=== PATIENT | male | born 1990 | race Hispanic/Latino ===

== ENCOUNTER 2018-02-20 18:54 | Emergency (ER) | payer OTHER ==
[2018-02-20 19:04] VITALS: BP 142/77; TEMP 98.3
[2018-02-20] MEDS ORDERED: Sodium Chloride 0.9% 1,000 ML IV STA (19:12)
--- NOTE | 2018-02-20 19:19 | ED PDOC ---
Syncope/Near Syncope/Dizziness Time Seen by Provider: 02/20/18 19:06 Chief Complaint (Nursing): Dizziness/Lightheaded Chief Complaint (Provider): Dizziness/Lightheaded History Per: Patient History/Exam Limitations: no limitations Onset/Duration Of Symptoms: Days (x7) Current Symptoms Are (Timing): Still Present Fall Associated With With Symptoms: No Additional Complaint(s): 27 year old male presents to the ED complaining of dizziness and lightheadedness for 1 week. Associated with nausea, but no vomiting. Otherwise patient denies any chest pain, SOB, headache, numbness, tingling, focal weakness, syncope/fall, or other associated symptoms. On arrival patient appears anxious. Past Medical History Reviewed: Historical Data, Nursing Documentation, Vital Signs Vital Signs: Last Vital Signs Temp 98.3 F 02/20/18 19:01 Pulse 101 H 02/20/18 19:01 Resp 19 02/20/18 19:01 BP 142/77 02/20/18 19:01 Pulse Ox 96 02/20/18 19:01 - Medical History PMH: No Chronic Diseases - Family History Family History: States: No Known Family Hx - Home Medications Home Medications: Ambulatory Orders Medication Instructions Recorded Meclizine [Meclizine*] 25 mg PO Q8 #15 tab 02/20/18 - Allergies Allergies/Adverse Reactions: Allergies Allergy/AdvReac Type Severity Reaction Status Date / Time No Known Allergies Allergy Verified 02/20/18 19:01 Review of Systems ROS Statement: Except As Marked, All Systems Reviewed And Found Negative Constitutional: Negative for: Fever Eyes: Negative for: Vision Change Cardiovascular: Positive for: Light Headedness. Negative for: Chest Pain, Palpitations Respiratory: Negative for: Shortness of Breath Gastrointestinal: Positive for: Nausea. Negative for: Vomiting Neurological: Positive for: Dizziness. Negative for: Weakness, Numbness, Incoordination, Headache, Other (syncope/fall) Physical Exam - Reviewed Nursing Documentation Reviewed: Yes Vital Signs Reviewed: Yes - Physical Exam Appears: Positive for: Non-toxic, No Acute Distress Head Exam: Positive for: ATRAUMATIC, NORMOCEPHALIC Skin: Positive for: Normal Color, Warm, Dry Eye Exam: Positive for: Normal appearance, EOMI, PERRL Neck: Positive for: Normal, Painless ROM, Supple Cardiovascular/Chest: Positive for: Regular Rate, Rhythm. Negative for: Murmur Respiratory: Positive for: Normal Breath Sounds. Negative for: Respiratory Distress Pulses-Radial (L): 2+ Pulses-Radial (R): 2+ Gastrointestinal/Abdominal: Positive for: Normal Exam, Soft. Negative for: Tenderness Extremity: Positive for: Normal ROM. Negative for: Calf Tenderness, Swelling Neurologic/Psych: Positive for: Alert, mri specialist II-XII (intact), Oriented (x3), Gait (steady). Negative for: Motor/Sensory Deficits, Cerebellar Tests - Laboratory Results Result Diagrams: 02/20/18 19:53 02/20/18 19:53 - ECG O2 Sat by Pulse Oximetry: 96 (RA) Pulse Ox Interpretation: Normal Medical Decision Making Medical Decision Making: Time: 1911 Initial Impression: Dizziness/lightheadedness Initial Plan: * EKG * Labs * CT Head * IVF hydration Scribe Attestation: Documented by Aleksandra Feng, acting as a scribe for Dr. Darius Loredo MD. Provider Scribe Attestation: All medical record entries made by the Scribe were at my direction and personally dictated by me. I have reviewed the chart and agree that the record accurately reflects my personal performance of the history, physical exam, medical decision making, and the department course for this patient. I have also personally directed, reviewed, and agree with the discharge instructions and disposition. Disposition - Clinical Impression Clinical Impression: Dizziness of unknown cause - Patient ED Disposition Is Patient to be Admitted: No Counseled Patient/Family Regarding: Studies Performed, Diagnosis, Need For Followup, Rx Given - Disposition Referrals: FAMILY PROVIDER,NO [Primary Care Provider] - Nemesio Oliva MD [Medical Doctor] - Disposition: Routine/Home Disposition Time: 21:44 Condition: FAIR Prescriptions: Meclizine [Meclizine*] 25 mg PO Q8 #15 tab Instructions: Vertigo (a Type of Dizziness) Forms: [facility] (Maltese)
[2018-02-20 19:56] LABS: BASO # 0.1 K/uL (0.0-0.2); BASO % 0.7 % (0.0-2.0); EOS # 0.1 K/uL (0.0-0.7); EOS % 0.7 % (0.0-4.0); HEMOGLOBIN 15.2 g/dL (12.0-18.0); LYMPH # 1.7 K/uL (1.0-4.3); LYMPH % 17.8 % (20.0-40.0); MEAN CELL VOLUME 82.1 fl (80.0-94.0); MEAN CORPUSCULAR HEMOGLOBIN 28.2 pg (27.0-31.0); MEAN CORPUSCULAR HGB CONC 34.3 g/dL (33.0-37.0); MEAN PLATELET VOLUME 6.8 fl (7.2-11.7); MONO # 0.6 K/uL (0.0-0.8); MONO % 6.3 % (0.0-10.0); NEUT # 7.1 K/uL (1.8-7.0); NEUT % 74.5 % (50.0-75.0); RBC 5.39 Mil/uL (4.40-5.90); RED CELL DISTRIBUTION WIDTH 13.6 % (11.5-14.5); WHITE BLOOD COUNT 9.5 K/uL (4.8-10.8)
[2018-02-20 20:09] LABS: ALB/GLOB RATIO 1.4 (1.0-2.1); ALBUMIN 4.7 g/dL (3.5-5.0); ALT/SGPT 19 U/L (21-72); AST/SGOT 18 U/L (17-59); BLOOD UREA NITROGEN 16 mg/dl (9-20); CALCIUM 9.9 mg/dL (8.4-10.2); GFR NON-AFRICAN AMERICAN > 60
[2018-02-20 21:03] LABS: BARBITURATES, UR NEGATIVE (NEGATIVE); BENZODIAZEPINES, UR NEGATIVE (NEGATIVE); OPIATES, UR NEGATIVE (NEGATIVE); PHENCYCLIDINE, UR NEGATIVE (NEGATIVE)
[2018-02-20 21:21] LABS: T4 6.16 ug/dl (5.5-11.0)
[2018-02-20 22:13] VITALS: PULSE 89; RESP 17; O2SAT 99
--- NOTE | 2018-02-21 09:09 | CARD ---
APPROVED REPORT Date of service: 02/20/2018 EKG Measurement Heart [id number] <Conclusion> Normal sinus rhythm Normal ECG
--- NOTE | 2018-02-21 12:43 | CT ---
Date of service: 02/20/2018 PROCEDURE: CT HEAD WITHOUT CONTRAST. HISTORY: r/o bleed COMPARISON: 04/08/2008 TECHNIQUE: Axial computed tomography images were obtained through the head/brain without intravenous contrast. Supplemental Coronal and Sagittal projections created and reviewed. Radiation dose: Total exam DLP = in 846.04 mGy-cm. This CT exam was performed using one or more of the following dose reduction techniques: Automated exposure control, adjustment of the mA and/or kV according to patient size, and/or use of iterative reconstruction technique. FINDINGS: HEMORRHAGE: No intracranial hemorrhage. BRAIN: No mass effect or edema. No atrophy or chronic microvascular ischemic changes. VENTRICLES: Unremarkable. No hydrocephalus. CALVARIUM: Unremarkable. PARANASAL SINUSES: Unremarkable as visualized. No significant inflammatory changes. MASTOID AIR CELLS: Unremarkable as visualized. No inflammatory changes. OTHER FINDINGS: None. IMPRESSION: No acute intracranial abnormalities. No significant findings to account for the clinical presentation. Concordant results (preliminary interpretation) provided by [facility]. Procedure Completed: 19:37 Preliminary Report: Dictated and Authenticated: 20:27 Final Interpretation: 12:40 February 21, 2018
== END 2018-02-20 21:54 | disposition home or self-care (01) ==
LOC: H.ER 18:54 → SUPCPDRO 18:54 → H.ER 21:54
DX: R42 Dizziness and giddiness (principal)
CPT/HCPCS: 70450; 80053; 80324; 80345; 80346; 80349; 80353; 80358; 80361; 83992; 84436; 84443; 85025; 93005; 96360; 99284; J7030